=== PATIENT | male | born 1965 | race African-American/Black ===

== ENCOUNTER 2022-10-23 14:37 | Emergency (ER) | payer MEDICAID ==
[~2022-10-23] VITALS: Ht 180.3 cm; Wt 91.0 kg
[2022-10-23] MEDS ORDERED: VISCOUS LIDOCAINE 2% 15 ML UDC MM STA (15:48)
[2022-10-23] MEDS ORDERED: HYDRALAZINE 20MG/ML VIAL IV ONE (16:00)
[2022-10-23] MEDS ORDERED: LIDOCAINE HCL/EPINEPHRINE 1%-EPI 1:100,000 10 ML VIAL INFIL NR (16:00)
[2022-10-23] MEDS ORDERED: LIDOCAINE HCL/EPINEPHRINE 1%-EPI 1:100,000 20 ML VIAL INFIL ONE (16:00)
[2022-10-23] MEDS ORDERED: LIDOCAINE HCL/EPINEPHRINE 1%-EPI 1:100,000 20 ML VIAL INFIL NR (16:00)
[2022-10-23 16:03] LABS: BASOPHILS % 0.6 % (0.0-2.0); EOSINOPHILS % 2.1 % (0.0-5.0); HEMATOCRIT. 43.1 % (42.0-52.0); HEMOGLOBIN. 14.1 g/dL (14.0-18.0); LYMPHOCYTES % 26.6 % (20.0-50.0); MEAN CORPUSCULAR HEMOGLOBIN 28.2 pg (28.0-32.0); MEAN CORPUSCULAR VOLUME 86.5 fL (80.0-94.0); MEAN PLATELET VOLUME 7.4 fl (7.4-10.4); MONOCYTES % 11.5 % (2.0-8.0); NEUTROPHILS % 59.2 % (40.0-76.0); PLATELET 294 x1000/uL (130-400); RED BLOOD CELL COUNT 4.99 mill/uL (4.7-6.1); RED CELL DISTRIBUTION WIDTH 14.6 % (11.6-14.6)
[2022-10-23 16:12] LABS: CHLORIDE 108 mEq/L (98-107)
[2022-10-23 17:34] LABS: *AMPHETAMINES SCREEN URINE NEGATIVE (NEGATIVE); *BARBITURATES SCREEN URINE NEGATIVE (NEGATIVE); *BENZODIAZEPINES SCREEN URINE NEGATIVE (NEGATIVE); *COCAINE SCREEN URINE NEGATIVE (NEGATIVE); CANNABINOID URINE SCREEN NEGATIVE (NEGATIVE); METHADONE URINE SCREEN NEGATIVE (NEGATIVE); OPIATES URINE SCREEN NEGATIVE (NEGATIVE); PHENCYCLIDINE URINE SCREEN NEGATIVE (NEGATIVE)
[2022-10-23 19:31] VITALS: BP 158/100
[2022-10-23] MEDS ORDERED: ACET-2708 MT (19:46)
[2022-10-23] MEDS ORDERED: CEPH500T MT (19:46)
== END 2022-10-23 20:20 | disposition home or self-care (01) ==
LOC: ER 14:37
DX: R04.0 Epistaxis (principal); I10 Essential (primary) hypertension; Z98.890 Other specified postprocedural states
CPT/HCPCS: 30901; 36415; 71045; 80053; 80305; 83880; 84484; 85025; 93005; 96374; 99285; J0360; J3490; Z7610; 30905

== ENCOUNTER 2022-10-28 07:46 | Emergency (ER) | payer MEDICAID ==
[~2022-10-28] VITALS: Ht 177.8 cm; Wt 96.0 kg
[~2022-10-28 07:46] MED LIST: ACET-2708 MT; CEPH500T MT
[2022-10-28 07:51] VITALS: BP 120/84
== END 2022-10-28 13:32 | disposition left against medical advice (07) ==
LOC: ER 07:46
DX: J34.89 Other specified disorders of nose and nasal sinuses (principal); I10 Essential (primary) hypertension; E11.9 Type 2 diabetes mellitus without complications
CPT/HCPCS: 99281

== ENCOUNTER 2023-05-03 21:13 | Emergency (ER) | payer MEDICAID, OTHER ==
[~2023-05-03] VITALS: Ht 175.3 cm; Wt 100.0 kg
[~2023-05-03 21:13] MED LIST changes: +AMLO10TA80 MT; +ASPI-1160 PO; +ATOR40TA70 MT; +BLOO-1113 TOP; -CEPH500T MT; +CLON1PAT10 TP; +ESOM20CA37 PO; +HYDR12.54 PO; +LANC-493 TP; +LIP40 MT; +LISI40TA13 MT; +METF-874 MT; +[UNRECOGNIZED DRUG - CODE] PO
[2023-05-03 23:19] VITALS: BP 139/81; PULSE 78; RESP 18; TEMP 98.6; O2SAT 100
[2023-05-03] MEDS ORDERED: IBUPROFEN 600MG TABLET PO ONE (23:30)
[2023-05-04] MEDS ORDERED: IBUP-2029 MT (01:47)
[2023-05-04] MEDS ORDERED: IBUPROFEN 600MG TABLET PO NR (02:15)
== END 2023-05-04 02:48 | disposition home or self-care (01) ==
LOC: ER 21:13
DX: M79.672 Pain in left foot (principal); E11.9 Type 2 diabetes mellitus without complications; I10 Essential (primary) hypertension; Z79.899 Other long term (current) drug therapy
CPT/HCPCS: 73620; 99283

== ENCOUNTER 2024-05-05 16:53 | Emergency (ER) | payer MEDICAID, OTHER ==
[~2024-05-05] VITALS: Ht 177.8 cm; Wt 93.0 kg
[~2024-05-05 16:53] MED LIST changes: -ESOM20CA37 PO; +ESOM20CA49 PO; -LIP40 MT; -[UNRECOGNIZED DRUG - CODE] PO
[2024-05-05 17:02] VITALS: O2SAT 98
[2024-05-05 20:48] LABS: HEMATOCRIT. 43.4 % (42.0-52.0); HEMOGLOBIN. 13.8 g/dL (14.0-18.0); MEAN CORPUSCULAR HEMOGLOBIN 27.4 pg (28.0-32.0); MEAN CORPUSCULAR HGB CONC 31.8 g/dL (31.0-37.0); MEAN CORPUSCULAR VOLUME 86.2 fL (80.0-94.0); MEAN PLATELET VOLUME 7.5 fl (7.4-10.4); PLATELET 193 x1000/uL (130-400); RED BLOOD CELL COUNT 5.03 mill/uL (4.7-6.1); RED CELL DISTRIBUTION WIDTH 16.5 % (11.6-14.6); WHITE BLOOD COUNT 4.2 x1000/uL (4.5-11.0)
[2024-05-05 20:51] LABS: DIFFERENTIAL COMMENT 1
[2024-05-05 20:55] LABS: CHLORIDE 108 mEq/L (98-107); POTASSIUM 3.6 mEq/L (3.5-5.1); SODIUM 142 mEq/L (136-145)
[2024-05-05 20:56] LABS: CALCIUM 9.6 mg/dL (8.7-10.4); CARBON DIOXIDE 26 mEq/L (21-32)
[2024-05-05 21:01] LABS: CREATININE 1.3 mg/dL (0.6-1.3); GLUCOSE 130 mg/dL (70-105); UREA NITROGEN BLOOD 10 mg/dL (9-23)
[2024-05-05 21:03] LABS: ACETAMINOPHEN < 2 ug/mL (10-30); ETHANOL BLOOD < 10 mg/dL (<10)
[2024-05-05 21:38] LABS: PLATELET ESTIMATE NORMAL
[2024-05-05 22:08] LABS: *AMPHETAMINES SCREEN URINE NEGATIVE (NEGATIVE); *BARBITURATES SCREEN URINE NEGATIVE (NEGATIVE); *BENZODIAZEPINES SCREEN URINE NEGATIVE (NEGATIVE); *COCAINE SCREEN URINE PRESUMPTIVE POSITIVE (NEGATIVE); METHADONE URINE SCREEN NEGATIVE (NEGATIVE); OPIATES URINE SCREEN NEGATIVE (NEGATIVE)
[2024-05-05 22:09] LABS: CANNABINOID URINE SCREEN NEGATIVE (NEGATIVE); ECSTASY MDMA SCREEN URINE NEGATIVE (NEGATIVE); PHENCYCLIDINE URINE SCREEN NEGATIVE (NEGATIVE)
[2024-05-06] MEDS: CYCLOBENZAPRINE 10MG TABLET PO SCH (00:41)
[2024-05-07] MEDS: ARIPIPRAZOLE 5MG TABLET PO SCH (09:25)
[2024-05-07 13:33] VITALS: BP 158/97; PULSE 66; RESP 20; TEMP 36.83628; O2SAT 99
== END 2024-05-07 13:54 | disposition short-term general hospital (02) ==
LOC: ER 16:53
DX: R45.851 Suicidal ideations (principal); E11.9 Type 2 diabetes mellitus without complications; I10 Essential (primary) hypertension; F32.A Depression, unspecified; F14.90 Cocaine use, unspecified, uncomplicated; Z86.73 Personal history of transient ischemic attack (TIA), and cerebral infarction without residual deficits; Z79.899 Other long term (current) drug therapy; Z59.00 Homelessness unspecified; Z88.6 Allergy status to analgesic agent; Z20.822 Contact with and (suspected) exposure to COVID-19
CPT/HCPCS: 36415; 80048; 80305; 80307; 80320; 80329; 85025; 87426; 99285; G0480

== ENCOUNTER 2024-10-01 06:49 | Emergency (ER) | payer MEDICAID, OTHER ==
[~2024-10-01] VITALS: Ht 160 cm; Wt 73.0 kg
[~2024-10-01 06:49] MED LIST changes: +METF-1150 MT; -METF-874 MT
[2024-10-01 06:50] VITALS: BP 106/68; PULSE 114; RESP 18; TEMP 36.4; O2SAT 97
[2024-10-01] MEDS ORDERED: LORAZEPAM 2MG/ML INJ IV ONE (07:00)
[2024-10-01] MEDS ORDERED: LISI20TA31 PO (19:51)
[2024-10-01] MEDS ORDERED: METF-416 (19:51)
[2024-10-01] MEDS ORDERED: amlodipine (19:52)
[2024-10-02] MEDS ORDERED: CHLO25CA11 MT (13:00)
== END 2024-10-01 07:06 | disposition left against medical advice (07) ==
LOC: ER 06:49
DX: R07.89 Other chest pain (principal); F14.90 Cocaine use, unspecified, uncomplicated; E11.9 Type 2 diabetes mellitus without complications; F17.200 Nicotine dependence, unspecified, uncomplicated; F41.9 Anxiety disorder, unspecified; I10 Essential (primary) hypertension; Z79.82 Long term (current) use of aspirin; Z79.84 Long term (current) use of oral hypoglycemic drugs; Z79.899 Other long term (current) drug therapy; Z86.73 Personal history of transient ischemic attack (TIA), and cerebral infarction without residual deficits; Z88.6 Allergy status to analgesic agent
CPT/HCPCS: 93005; 99283; J2060